=== PATIENT | female | born 1985 | race Two or more races ===

== ENCOUNTER 2023-06-01 04:27 | Day surgery (SDC) | payer OTHER ==
[2023-05-25 15:34] VITALS: BMI 32.5
[2023-06-01 12:41] VITALS: RESP 18
[2023-06-01 13:01] VITALS: BP 115/79; PULSE 69; TEMP 97.8
== END 2023-06-01 13:01 | disposition home or self-care (01) ==
LOC: JASU-ENDO 04:27
PROVIDERS: ATTEND Internal Medicine Gastroenterology
PROC: 0DB28ZX Excision of Middle Esophagus, Via Natural or Artificial Opening Endoscopic, Diagnostic (ICD-10-PCS; 2023-06-01)
PROC: 0DB38ZX Excision of Lower Esophagus, Via Natural or Artificial Opening Endoscopic, Diagnostic (ICD-10-PCS; principal; 2023-06-01 12:15)
DX: K22.0 Achalasia of cardia (principal)
CPT/HCPCS: 81025; 88305-TC